=== PATIENT | female | born 1985 | race Caucasian/White ===

== ENCOUNTER 2016-12-02 19:44 | Emergency (ER) | payer OTHER ==
[2016-12-02 20:54] VITALS: BP 109/76
--- NOTE | 2016-12-02 21:24 | ER Document Report ---
ED Medical Screen (RME) - General Stated Complaint: NAUSEA,VOMITING Mode of Arrival: Ambulatory Information source: Patient Notes: 31 y/o F presents to ED via ems for anxiety attack. Patient reports drank three quarters of a bottle of wine and smoked marijuana this evening and has been under a lot of stress recently which triggered her anxiety. Reports sob. States was diagnosed with influenza yesterday. Denies SI/HI. I have greeted and performed a rapid initial assessment of this patient. A comprehensive ED assessment and evaluation of the patient, analysis of test results and completion of the medical decision making process will be conducted by additional ED providers. TRAVEL OUTSIDE OF THE [place] IN LAST 30 DAYS: No - Related Data Allergies/Adverse Reactions: No Known Allergies Allergy (Unverified 12/02/16 21:10) Past Medical History - Social History Chew tobacco use (# tins/day): No Frequency of alcohol use: Occasional Drug Abuse: Marijuana Renal/ Medical History: Denies: Hx Peritoneal Dialysis Physical Exam - Vital signs Vitals: Temp Pulse Resp BP Pulse Ox 97.7 F 114 H 22 H 109/76 100 12/02/16 20:52 12/02/16 20:52 12/02/16 20:52 12/02/16 20:52 12/02/16 20:52 - General General appearance: Alert In distress: None - Respiratory Respiratory status: No respiratory distress Breath sounds: Normal - Psychological Associated symptoms: Anxious Course - Vital Signs Vital signs: Temp Pulse Resp BP Pulse Ox 97.7 F 114 H 22 H 109/76 100 12/02/16 20:52 12/02/16 20:52 12/02/16 20:52 12/02/16 20:52 12/02/16 20:52
[2016-12-02 21:55] LABS: ABSOLUTE BASOPHILS # (AUTO) 0.1 10^3/uL (0.0-0.2); ABSOLUTE EOSINOPHILS # (AUTO) 0.1 10^3/uL (0.0-0.6); ABSOLUTE LYMPHOCYTES (AUTO) 1.1 10^3/uL (0.5-4.7); ABSOLUTE MONOCYTES (AUTO) 0.7 10^3/uL (0.1-1.4); ABSOLUTE NEUT (AUTO) 9.7 10^3/uL (1.7-8.2); BASOPHILS % (AUTO) 0.7 % (0-2); EOSINOPHILS % (AUTO) 0.5 % (0-6); HEMATOCRIT 40.5 % (36.0-47.0); HEMOGLOBIN 13.7 g/dL (12.0-15.5); HGB HCT DIFFERENCE 0.6; LYMPHOCYTES % (AUTO) 9.2 % (13-45); MEAN CORPUSCULAR HEMOGLOBIN 30.8 pg (27.0-33.4); MEAN CORPUSCULAR HGB CONC 33.9 g/dL (32.0-36.0); MEAN CORPUSCULAR VOLUME 91 fl (80-97); MONOCYTES % (AUTO) 6.3 % (3-13); RED BLOOD COUNT 4.44 10^6/uL (3.72-5.28); RED CELL DISTRIBUTION WIDTH 13.3 % (11.5-14.0); SEGMENTED NEUTROPHILS % (AUTO) 83.3 % (42-78); WHITE BLOOD COUNT 11.7 10^3/uL (4.0-10.5)
[2016-12-02 22:08] LABS: APPEARANCE,URINE CLEAR; BILIRUBIN,URINE NEGATIVE (NEGATIVE); GLUCOSE, URINE NEGATIVE (NEGATIVE); KETONES,URINE TRACE mg/dL (NEGATIVE); LEUKOCYTE ESTERASE,URINE NEGATIVE (NEGATIVE); NITRITE,URINE NEGATIVE (NEGATIVE); PROTEIN,URINE NEGATIVE (NEGATIVE); URINE SPECIFIC GRAVITY 1.006; UROBILINOGEN,URINE NEGATIVE mg/dL (<2.0)
[2016-12-02 22:16] LABS: URINE BARBITURATES SCREEN NEGATIVE; URINE METHADONE SCREEN NEGATIVE; URINE OPIATES LOW NEGATIVE; URINE PHENCYCLIDINE SCREEN NEGATIVE
[2016-12-02 22:22] LABS: ALANINE AMINOTRANSFERASE 27 U/L (9-52); ALBUMIN 4.9 g/dL (3.5-5.0); ALCOHOL 163 mg/dL (NONE DETECTED); ALKALINE PHOSPHATASE 58 U/L (38-126); ANION GAP 17 (5-19); ASPARTATE AMINO TRANSFERASE 25 U/L (14-36); BILIRUBIN,TOTAL 0.4 mg/dL (0.2-1.3); BLOOD UREA NITROGEN 8 mg/dL (7-20); CALCIUM 9.7 mg/dL (8.4-10.2); CARBON DIOXIDE 23 mmol/L (22-30); CHLORIDE 101 mmol/L (98-107); CREATININE RESULT 0.66 mg/dL (0.52-1.25); GLUCOSE 106 mg/dL (75-110); SODIUM 140.9 mmol/L (137-145); TOTAL PROTEIN 8.1 g/dL (6.3-8.2)
--- NOTE | 2016-12-03 00:49 | ER Document Report ---
[id number] Mode of Arrival: Ambulatory Notes: Patient is a 31-year-old female presents with complaint of anxiety. Patient says that she's a lot stress with her significant other. Her mother came up from [place] to help bring her and her kids back to [place] get away from the situation. Slight she became very anxious and drink some alcohol. She's also had a recent cough and nasal congestion. After she drank the alcohol should developed panic attack and therefore came to ER. She is now feeling much improved. She is now sober. She has no further complaints at this time. She denies any thoughts of suicide. TRAVEL OUTSIDE OF THE [place] IN LAST 30 DAYS: No - Related Data Allergies/Adverse Reactions: No Known Allergies Allergy (Unverified 12/02/16 21:10) Past Medical History - General Information source: Patient - Social History Smoking Status: Never Smoker Chew tobacco use (# tins/day): No Frequency of alcohol use: Occasional Drug Abuse: Marijuana Family History: Reviewed & Not Pertinent Patient has suicidal ideation: No Patient has homicidal ideation: No Renal/ Medical History: Denies: Hx Peritoneal Dialysis Review of Systems - Review of Systems Notes: My Normal Review Basic REVIEW OF SYSTEMS: CONSTITUTIONAL : Denies fever, chills, or sweats. Denies recent illness. EENT: Denies eye, ear, throat, or mouth pain or symptoms. Denies nasal or sinus congestion. CARDIOVASCULAR: Denies chest pain. RESPIRATORY: Denies cough, cold, or chest congestion. Denies shortness of breath, difficulty breathing, or wheezing. GASTROINTESTINAL: Denies abdominal pain. Denies nausea, vomiting, or diarrhea. Denies constipation. Last BM: MUSCULOSKELETAL: Denies neck or back pain or joint pain or swelling. SKIN: Denies rash or skin lesions. NEUROLOGICAL: Denies altered mental status or loss of consciousness. Denies headache. Denies weakness or paralysis or loss of use of either side. Denies problems with gait or speech. Denies sensory or motor loss. PSYCHIATRIC: Anxiety. ALL OTHER SYSTEMS REVIEWED AND NEGATIVE. Physical Exam - Vital signs Vitals: Temp Pulse Resp BP Pulse Ox 97.7 F 114 H 22 H 109/76 100 12/02/16 20:52 12/02/16 20:52 12/02/16 20:52 12/02/16 20:52 12/02/16 20:52 - Notes Notes: General Appearance: Well nourished, alert, cooperative, no acute distress, no obvious discomfort. Well-appearing. Vitals: reviewed, See vital signs table. Head: no swelling or tenderness to the head Eyes: PERRL, EOMI, Conjuctiva clear Mouth: No decreasd moisture Throat: No tonsillar inflammation, No airway obstruction, No lymphadenopathy Neck: Supple, no neck tenderness Lungs: No wheezing, No rales, No rhonci, No accessory muscle use, good air exchange bilaterally. Heart: Normal rate, Regular rythm, No murmur, no rub Abdomen: Normal BS, soft, No rigidity, No abdominal tenderness, No guarding, no rebound, no abdominal masses, no organomegaly Extremities: strength 5/5 in all extremities, good pulses in all extremities, no swelling or tenderness in the extremities, no edema. Skin: warm, dry, appropriate color, no rash Neuro: speech clear, oriented x 3, normal affect, responds appropriately to questions. Course - Vital Signs Vital signs: Temp Pulse Resp BP Pulse Ox 97.7 F 114 H 22 H 109/76 100 12/02/16 20:52 12/02/16 20:52 12/02/16 20:52 12/02/16 20:52 12/02/16 20:52 - Laboratory Result Diagrams: 12/02/16 21:20 12/02/16 21:20 Laboratory results interpreted by me: 12/02/16 12/02/16 21:20 21:20 WBC 11.7 H Seg Neutrophils % 83.3 H Lymphocytes % 9.2 L Absolute Neutrophils 9.7 H Urine Ketones TRACE H - Transfer of Care Notes: 12/03/16 06:30 Patient will be discharged home. I encouraged her to return to ER immediately if she has severe depression, suicidal thoughts, or she feels unwell. Patient encouraged to not drink alcohol. Patient agrees with plan. Her mother is in the room for support and feels comfortable taking her home. Dictation of this chart was performed using voice recognition software; therefore, there may be some unintended grammatical errors. Discharge - Discharge Clinical Impression: Anxiety URI (upper respiratory infection) Qualifiers: URI type: unspecified URI Qualified Code(s): J06.9 - Acute upper respiratory infection, unspecified Alcohol intoxication Qualifiers: Complication of substance-induced condition: uncomplicated Qualified Code(s): F10.120 - Alcohol abuse with intoxication, uncomplicated Condition: Good Disposition: HOME, SELF-CARE Instructions: Anxiety ([facility]) Additional Instructions: Please return to the ER if you have difficulty breathing, recurrent fevers not responding to Tylenol, or if you feel unwell. Do not smoke or drink alcohol.
== END 2016-12-03 01:17 | disposition home or self-care (01) ==
LOC: ER 19:44
DX: F41.9 Anxiety disorder, unspecified (principal); J06.9 Acute upper respiratory infection, unspecified; F10.120 Alcohol abuse with intoxication, uncomplicated
CPT/HCPCS: 36415; 80053; 80307; 81001; 81025; 85025; 99283